=== PATIENT | female | born 1970 | race Hispanic/Latino ===

== ENCOUNTER 2023-07-29 07:43 | Emergency (ER) | payer OTHER, SELFPAY ==
[2023-07-29 07:44] VITALS: BP 163/99
[2023-07-29 07:52] VITALS: BMI 42.4
[2023-07-29 07:55] VITALS: BP 132/54
[2023-07-29 08:00] VITALS: BP 119/66
[2023-07-29 08:36] LABS: % Basophils 0.4 % (0-2); % Eosinophils 1.8 % (0-6); % Immature Granulocytes 0.2 % (0-0.5); % Lymphocytes 31.9 % (20.5-51.1); % Monocytes 7.8 % (1.7-9.3); % Neutrophils 57.9 % (42.2-75.2); Absolute Eosinophils 0.2 10^3/uL (0-0.7); Absolute Lymphocytes 2.9 10^3/uL (1.2-3.4); Absolute Monocytes 0.7 10^3/uL (0.1-0.6); Absolute Neutrophils 5.3 10^3/uL (1.4-6.5); Hematocrit 38.5 % (37.0-47.0); Hemoglobin 13.1 g/dL (12.0-16.0); Mean Corpuscular Hgb 25.6 pg (27.0-31.0); Mean Corpuscular Volume 75.3 fL (81.0-99.0); Mean Platelet Volume 9.6 fL (7.4-10.4); Nucleated Red Blood Cells % 0 %; Platelet Count 258 10^3/uL (130-400); Red Blood Cell Count 5.11 10^6/uL (4.20-5.40); Red Cell Dist. Width 13.5 % (11.5-14.5); White Blood Cell Count 9.2 10^3/uL (4.8-10.8)
[2023-07-29 08:50] LABS: Blood Urea Nitrogen 13 mg/dl (7-17); Calcium 9.3 mg/dl (8.4-10.2); Carbon Dioxide 25 mmol/L (22-30); Chloride 102 mmol/L (98-107); Estimated Creatinine Clearance 103 ml/min; Glucose 91 mg/dl (70-99); Sodium 137 mmol/L (135-145); eGFR > 60.00
[2023-07-29 09:00] VITALS: BP 121/67
[2023-07-29 09:28] LABS: Troponin I < 0.012 ng/ml
[2023-07-29 09:32] LABS: TSH Reflex To Free T4 2.73 uIU/ml (0.47-4.68)
--- NOTE | 2023-07-29 09:53 | ED.GENMED ---
History of Present Illness
General
Chief Complaint: Heart Rate Problem
Source: patient and records
Exam Limitations: none
Time Seen by Provider: 07/29/23 07:53
Nursing documentation reviewed up to this point in time: agreed with
Travel History
Have you had any contact with someone who has COVID-19?: No
Do you have any symptoms of coronavirus? Fever > 100 degrees, chills, cough, shortness of breath, sore throat, loss of taste or smell, muscle aches, or headache?: No
History of Present Illness
History of Present Illness:
Patient is a 53-year-old female presents to the emergency department with a racing heart intermittently for the past week however the last 2 days it is lasting for greater than 10 minutes at a time and occurred at work today. It is progressively
been lasting longer. Occurs at rest or with activity and does not seem to follow any particular pattern. It comes and goes spontaneously. Patient denies any skin, hair or weight changes. Patient today was concerned because she felt chest
heaviness and abdominal discomfort. Patient denies any nausea, vomiting, diarrhea. Patient occasionally gets diarrhea from the metformin. Patient denies any symptoms. Patient has actually decreased her amount of caffeine intake. Patient is
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
Past History
Past History
ED Past Medical History: GERD, NIDDM and Other (Heparin-induced thrombocytopenia, adrenal infarct)
ED Past Surgical History: None
Social History
Tobacco: Non-smoker
Alcohol: None
Drug: None
Living: with family
Employment: Employed
Family History
Family History: Other (Mother with breast cancer)
Review of Systems
Review of Systems
All Other Systems: ROS reviewed and negative except as documented in HPI and ROS
Constitutional: Reports no symptoms; Denies fever, weight gain, weight loss or chills
EENT: Reports no symptoms
Respiratory: Reports no symptoms
Cardiac: Reports chest pain and palpitations; Denies diaphoresis or syncope
ABD/GI: Reports abdominal pain; Denies nausea, vomiting, diarrhea, constipated or anorexia
: Reports no symptoms
Musculoskeletal: Reports no symptoms
Skin: Reports no symptoms
Neurological: Reports no symptoms
Hematologic/Lymphatic: Reports no symptoms
Psychiatric: Reports no symptoms
Phy Exam
Physical Exam
Physical Exam:
Physical Exam
General: No apparent distress, alert and appropriate, well nourished, well hydrated
HENT: Normocephalic, supple with no lymphadenopathy, no thyromegaly
Eyes: Clear sclera, conjuctiva without injection
Heart: Regular rhythm and rate. No S3, S4. No murmur. No NVD, bruit
Lungs: No respiratory distress, no stridor, lung sounds clear and equal bilaterally
Abdomen: Soft, nontender, no organomegaly, no CVA tenderness, BS good
Neuro: Alert and oriented x 3, CN II - XII intact, no motor focality, no cerebellar dysfunction
Skin: no rash
Psychiatric: well kept. interactive and cooperative
Extremities: No edema, cyanosis, tenderness, Good and equal peripheral pulses.
Course
Orders/Labs/Results
Orders:
Orders
07/29/23 07:46
Electrocardiogram (*1) Urgent
Reason for Study: Chest Pain
EKG- Treatment ONCE
07/29/23 08:08
Basic Metabolic Panel Urgent
Complete Blood Count/With Diff Urgent
TSH Reflex To Free T4 Urgent
Comment: ADD ON
Troponin I Urgent
07/29/23 08:31
Add On- LAB Urgent
Tests Added?: tsh reflex t4
07/29/23 08:55
Potassium Urgent
Abnormal Lab Results
07/29/23
08:08
MCV 75.3 L fL
(81.0-99.0)
MCH 25.6 L pg
(27.0-31.0)
Absolute Monos (auto) 0.7 H 10^3/uL
(0.1-0.6)
07/29/23 08:08
07/29/23 08:55
Vital Signs
Initial and Last Documented VS:
Initial Vital Signs
Temp Pulse Resp BP Pulse Ox
97.9 F 96 16 163/99 100
07/29/23 07:44 07/29/23 07:44 07/29/23 07:44 07/29/23 07:44 07/29/23 07:44
Last Documented Vital Signs
Temp Pulse Resp BP Pulse Ox
97.9 F 85 17 121/67 100
07/29/23 07:44 07/29/23 09:00 07/29/23 09:00 07/29/23 09:00 07/29/23 09:00
*Radiology
Radiology exam reviewed: other (na)
*Pulse Oximetry
Patient hypoxic: no
*EKG
Interpreted by ED Provider?: Yes
EKG Intrepretation Date: 07/29/23
EKG Intrepretation Time: 09:59
Interpretation: normal
Comparison EKG: no changes
Heart Rate: 91
Rate: normal
Rhythm: sinus
[place]: normal axis
Interval: normal interval
QRS Pattern: normal QRS
Ischemia: no ischemia
*[employer] Interpretation
Rate: normal
Interpretation: normal
Heart Rate: 85
Rhythm: sinus
*Critical Care Note
Total Time (30-74mins, 75-104mins- exclusive of procedures): Not Applicable
ED Attending Note
-
Portions of this chart may have been created with voice recognition software.� Occasional wrong word or��sound alike� substitutions may have occurred due to the inherent limitations of voice recognition software.
Discharge Plan
Departure
Patient Disposition: Home (Routine Discharge)
Date of Disposition: 07/29/23
Time of Disposition: 10:00
Patient with high blood pressure during this ER visit?: Yes
Condition: Good
Covid-19: Not Applicable
Discharge Problem:
Palpitations
Instructions: Palpitations (DC), BLOOD PRESSURE
Prescriptions:
New
metoprolol succinate [Toprol XL] 25 mg tablet extended release 24 hr
25 mg PO DAILY PRN (Reason: palpitations) Qty: 30 0RF
No Action
ascorbic acid (vitamin C) [Vitamin C] 1,000 mg Tablet
1 g PO DAILY AT 0700
hydrocortisone 10 mg tablet
15 mg PO DAILY
metformin 500 mg tablet extended release 24 hr
500 mg PO DAILY
Rx Instructions:
Patient takes trulicity weekly on Wednesdays. When trulicity unavailable, patient takes metformin ER 500mg daily in AM.
fludrocortisone 0.1 mg tablet
0.1 mg PO DAILY
Xarelto 20 mg tablet
20 mg PO DAILY
Trulicity 1.5 mg/0.5 mL pen injector
1.5 mg SC WE
Patient Comments:
Patient takes trulicity weekly on Wednesdays. When trulicity unavailable, patient takes metformin ER 500mg daily in AM.
hydrocortisone 10 MG tablet
10 mg PO QPM
Referrals:
Kem Cardenas DO [Active] - Call in 1-3 days for appt
Rita Mack DO [Family Provider] - Follow up in 5-7 days
Interventions
Interventions:
*Risk Screen - Suicide Last Done: 07/29/23 07:52
*General Assessment Last Done: 07/29/23 07:52
*Neglect/Abuse Screening Last Done: 07/29/23 07:52
ED- Fall Risk Assessment Last Done: 07/29/23 07:52
*ED COVID-19 Vaccine History Last Done: 07/29/23 07:44
ED- Cardiac Assessment Last Done: 07/29/23 07:52
ED- Pulmonary Assessment Last Done: 07/29/23 07:52
[2023-07-29 10:00] VITALS: BP 120/86
== END 2023-07-29 10:25 | disposition home or self-care (01) ==
LOC: EMR 07:43
PROVIDERS: EMERGENCY PHYSICIAN Emergency Medicine; FAMILY PHYSICIAN Internal Medicine
DX: R00.2 Palpitations (principal); R07.9 Chest pain, unspecified; R10.9 Unspecified abdominal pain; Z79.01 Long term (current) use of anticoagulants; R03.0 Elevated blood-pressure reading, without diagnosis of hypertension
CPT/HCPCS: 99284; 80048; 84132; 84443; 84484; 85025; 93005

== ENCOUNTER 2023-08-10 16:53 | Observation (INO) | payer OTHER, SELFPAY ==
[2023-08-10] VITALS (9 sets, daily range): BP systolic 111–180; BP diastolic 54–112; BMI 43.0; BMI 31.7
[2023-08-10 12:53] LABS: Glucose - Point of Care 110 mg/dl (70-99)
[2023-08-10 13:46] LABS: Glucose - Point of Care 108 mg/dl (70-99)
--- NOTE | 2023-08-10 13:46 | ED.GENMED ---
History of Present Illness
General
Chief Complaint: Change in Mental Status
Source: patient and other (Neighbor)
Exam Limitations: altered mental status
Time Seen by Provider: 08/10/23 13:25
Nursing documentation reviewed up to this point in time: agreed with
Travel History
Have you had any contact with someone who has COVID-19?: No
Do you have any symptoms of coronavirus? Fever > 100 degrees, chills, cough, shortness of breath, sore throat, loss of taste or smell, muscle aches, or headache?: No
History of Present Illness
History of Present Illness:
53-year-old female with a past medical history of diabetes, adrenal insufficiency secondary to adrenal infarct (she is on Xarelto for this) who presents to the emergency department accompanied by her neighbor for evaluation of confusion and memory
issues. Patient is very tearful and anxious and somewhat limited as a historian because she cannot recall some basic facts. Her neighbor says that at baseline she is oriented x 3 and is a normal person; neighbor said that she saw patient yesterday
at patient was normal and went to work and did her usual routine as far as neighbor can tell. Today her neighbor says that patient knocked on the door and said that she was not feeling right. She could not remember basic facts and was having
serious difficulty with her memory. She was brought to the emergency room for assessment. Patient can tell me where she is and was able to tell me the year but could not tell me the month or even the season. She cannot remember what she did
yesterday or other basic facts about her life. She says she has a mild headache. She denies feeling numb or weak anywhere. She denies any change in her vision. She denies having difficulty with her speech.
Past History
Past History
ED Past Medical History: GERD, NIDDM and Other (Heparin-induced thrombocytopenia, adrenal infarct)
ED Past Surgical History: None
Social History
Tobacco: Non-smoker
Alcohol: None
Drug: None
Living: with family
Employment: Employed
Family History
Family History: Other (Mother with breast cancer)
Review of Systems
Review of Systems
All Other Systems: ROS reviewed and negative except as documented in HPI and ROS
Respiratory: Denies trouble breathing
Cardiac: Denies chest pain or palpitations
ABD/GI: Denies abdominal pain, nausea or vomiting
: Denies flank pain
Musculoskeletal: Denies neck pain or back pain
Neurological: Reports headache and other (Memory issues/confusion); Denies dizzy, weakness or numbness
Phy Exam
Physical Exam
Physical Exam:
General: Awake, alert, tearful and anxious; she is oriented to person and place, was able to tell me the year but not the month or the season
Head: Normocephalic, atraumatic
Eyes: Conjunctiva normal, EOMI, pupils equal round reactive to light bilaterally, visual horan intact
Throat: Airway intact, handling secretions
Neck: Trachea midline, supple without meningismus
Lungs: Clear to auscultation bilaterally, no wheezing, rales, rhonchi
Heart: Tachycardia with regular rhythm, no murmurs, gallops, or rubs
Abd: Soft, non distended, nontender
Neuro: Cranial nerves intact 2 through 12, following complex commands, no limb ataxia, fluid speech without dysarthria or aphasia, motor and sensory function is intact proximally and distally upper and lower extremities; she has poor short-term
recall
Skin: no rash
Extremities: No edema in extremities, equal pulses in all extremities
Scores
Heart Failure Risk
Heart Failure Risk Score: Not Applicable
Heart Score for Chest Pain Patients
STEMI patient?: Not applicable
Withdrawal Assessment of Alcohol
Withdrawal Assessment Completed?: Not applicable
Course
Orders/Labs/Results
Orders:
Orders
08/10/23 13:27
CT Head W/o Iv Contrast Urgent
Comment:
Reason For Exam: confusion, memory loss
08/10/23 13:35
Alcohol Urgent
Complete Blood Count/With Diff Urgent
Comprehensive Metabolic Panel Urgent
Cortisol, Random Urgent
Comment: ADD ON
HCG, Serum Qualitative Screen Urgent
08/10/23 13:45
Electrocardiogram (*1) Urgent
Reason for Study: TIA/Stroke
NEUROLOGY CONSULT Urgent
Consulting Provider: Radha Parra
Was physician already notified: Yes
EKG- Treatment ONCE
Test Result ONCE
08/10/23 13:54
Add On- LAB Urgent
Comments:: ALCOHOL, CORTISOL, HCG
Tests Added?: ALCOHOL, CORTISOL, HCG
08/10/23 14:34
Drug Screen, Urine [Urine Drug Abuse Screen] Urgent
Date Specimen was Collected: 08/10/23
Time Specimen was Collected: 14:30
Urinalysis Reflex To Culture Urgent
Date Specimen was Collected: 08/10/23
Time Specimen was Collected: 14:31
Urine Microscopic Reflex Cult Urgent
08/10/23 15:07
0.9% Sodium Chloride 1000 ml [Nss] 1,000 ml IV BOLUS
Diphenhydramine [Benadryl] 25 mg IV NOW STA
Metoclopramide [Reglan] 10 mg IV NOW STA
Abnormal Lab Results
08/10/23 08/10/23 08/10/23
12:51 13:35 13:40
MCV 74.7 L fL
(81.0-99.0)
MCH 25.9 L pg
(27.0-31.0)
Absolute Neuts (auto) 6.9 H 10^3/uL
(1.4-6.5)
Absolute Monos (auto) 0.7 H 10^3/uL
(0.1-0.6)
Lymphocytes % 19.3 L %
(20.5-51.1)
Glucose 116 H mg/dl
(70-99)
Ur Occult Blood Reflex
POC Glucose 110 H mg/dl 108 H mg/dl
(70-99) (70-99)
08/10/23
14:34
MCV
MCH
Absolute Neuts (auto)
Absolute Monos (auto)
Lymphocytes %
Glucose
Ur Occult Blood Reflex Trace A
(Negative)
POC Glucose
08/10/23 13:35
08/10/23 13:35
Vital Signs
Initial and Last Documented VS:
Initial Vital Signs
Temp Pulse Resp BP Pulse Ox
36.7 C 109 18 180/112 99
08/10/23 12:42 08/10/23 12:42 08/10/23 12:42 08/10/23 12:42 08/10/23 12:42
Last Documented Vital Signs
Temp Pulse Resp BP Pulse Ox
36.7 C 90 16 128/56 98
08/10/23 12:42 08/10/23 16:00 08/10/23 16:00 08/10/23 16:00 08/10/23 16:00
MDM/Problems Addressed
Differential Diagnosis Includes:
Intracranial hemorrhage, CVA, seizure, complex migraine, transient global amnesia, hypoglycemia, meningoencephalitis considered somewhat less likely without fever or neck pain/stiffness
MDM/Problems Addressed:
53-year-old female presents for evaluation of confusion�onset somewhat unclear but was in her normal state of health yesterday per neighbor. She is hypertensive and tachycardic. Exam as above. Accu-Chek normal. Plan to place an IV check labs
including a CBC and a CMP. Will check an EKG. Will send for stat CT head. Check a random cortisol level as well. Case discussed with neurology for assessment.
Labs reviewed: CBC unremarkable, CMP shows no clinically significant abnormalities. Cortisol was normal. Urinalysis no infection. UDS and alcohol levels negative. CT head negative for any acute pathology. EKG shows sinus rhythm. Patient's
family now at bedside says that this is an abrupt change from normal and is quite severe. Says she has never had similar symptoms in the past. Will plan to admit for continued evaluation of her symptoms. Neurology consulted plan to assess at
bedside. Discussed with hospitalist for admission.
Chronic conditions affecting care:
Diabetes
Acute Exacerbation and/or Progression of Chronic Illness:
Acutely hypertensive
*Radiology
Radiology exam reviewed: radiology read reviewed
*Pulse Oximetry
Patient hypoxic: no
*Critical Care Note
Total Time (30-74mins, 75-104mins- exclusive of procedures): Not Applicable
Data Reviewed
Review of Other/Old Records Reveals: Labs and Records
Source: patient and other (Neighbor)
Patient Management
Discussion with other providers: Hospitalist (Discussed with hospitalist) and Bulb Tester (Discussed with neurology)
Escalation/DeEscalation of care consider admission/obs:
Admission indicated
ED Attending Note
-
Portions of this chart may have been created with voice recognition software.� Occasional wrong word or��sound alike� substitutions may have occurred due to the inherent limitations of voice recognition software.
Discharge Plan
Departure
Patient Disposition: Admit
Date of Disposition: 08/10/23
Time of Disposition: 16:14
Admit to doctor: [facility]
Presentation/result/management discussed w/ accepting MD/DO: Hospitalist
Discharge Problem:
Amnesia, Confusion
Prescriptions:
No Action
ascorbic acid (vitamin C) [Vitamin C] 1,000 mg Tablet
1 g PO DAILY AT 0700
hydrocortisone 10 mg tablet
15 mg PO DAILY
metformin 500 mg tablet extended release 24 hr
500 mg PO DAILY
Rx Instructions:
Patient takes trulicity weekly on Wednesdays. When trulicity unavailable, patient takes metformin ER 500mg daily in AM.
fludrocortisone 0.1 mg tablet
0.1 mg PO DAILY
Xarelto 20 mg tablet
20 mg PO DAILY
Trulicity 1.5 mg/0.5 mL pen injector
1.5 mg SC WE
Patient Comments:
Patient takes trulicity weekly on Wednesdays. When trulicity unavailable, patient takes metformin ER 500mg daily in AM.
hydrocortisone 10 MG tablet
10 mg PO QPM
metoprolol succinate [Toprol XL] 25 mg tablet extended release 24 hr
25 mg PO DAILY PRN (Reason: palpitations) Qty: 30 0RF
Referrals:
Rita Mack DO [Family Provider] -
Interventions
Interventions:
*Risk Screen - Suicide Last Done: 08/10/23 12:42
*Neglect/Abuse Screening Last Done: 08/10/23 12:42
*ED COVID-19 Vaccine History Last Done: 08/10/23 12:42
[2023-08-10 13:53] LABS: % Basophils 0.4 % (0-2); % Eosinophils 2.7 % (0-6); % Immature Granulocytes 0.2 % (0-0.5); % Lymphocytes 19.3 % (20.5-51.1); % Monocytes 6.6 % (1.7-9.3); % Neutrophils 70.8 % (42.2-75.2); Absolute Eosinophils 0.3 10^3/uL (0-0.7); Absolute Lymphocytes 1.9 10^3/uL (1.2-3.4); Absolute Monocytes 0.7 10^3/uL (0.1-0.6); Absolute Neutrophils 6.9 10^3/uL (1.4-6.5); Hematocrit 38.3 % (37.0-47.0); Hemoglobin 13.3 g/dL (12.0-16.0); Mean Corp Hgb Conc. 34.7 g/dL (33.0-37.0); Mean Corpuscular Hgb 25.9 pg (27.0-31.0); Mean Corpuscular Volume 74.7 fL (81.0-99.0); Mean Platelet Volume 9.6 fL (7.4-10.4); Nucleated Red Blood Cells % 0 %; Platelet Count 269 10^3/uL (130-400); Red Blood Cell Count 5.13 10^6/uL (4.20-5.40); Red Cell Dist. Width 13.9 % (11.5-14.5); White Blood Cell Count 9.8 10^3/uL (4.8-10.8)
[2023-08-10 14:07] LABS: ALT (SGPT) 18 U/L (0-35); AST (SGOT) 23 U/L (14-36); Albumin 3.9 g/dl (3.5-5.0); Alkaline Phosphatase 96 U/L (38-126); Blood Urea Nitrogen 14 mg/dl (7-17); Calcium 9.4 mg/dl (8.4-10.2); Carbon Dioxide 28 mmol/L (22-30); Chloride 102 mmol/L (98-107); Glucose 116 mg/dl (70-99); Potassium 3.8 mmol/L (3.5-5.1); Sodium 138 mmol/L (135-145); Total Bilirubin 0.5 mg/dl (0.2-1.3); eGFR > 60.00
[2023-08-10 14:32] LABS: HCG, Serum Qualitative Screen Negative
[2023-08-10 14:36] LABS: Alcohol None Detected
[2023-08-10 14:48] LABS: Urine Albumin Negative (Neg - Trace); Urine Bilirubin Negative (Negative); Urine Character Clear (Clear); Urine Color Yellow; Urine Glucose Negative (Negative); Urine Ketone Negative (Negative); Urine Leukocyte Negative (Negative); Urine Nitrite Negative (Negative); Urine Occult Blood Trace (Negative); Urine Urobilinogen Negative (Neg - 1+)
[2023-08-10 14:57] LABS: Urine Red Blood Cell 0-2 /HPF (0-2)
[2023-08-10 15:01] LABS: Amphetamines Negative (Negative); Barbiturates Negative (Negative); Benzodiazepines Negative (Negative); Buprenorphine Negative (Negative); Cocaine Negative (Negative); Marijuana Negative (Negative); Methadone Negative (Negative); Methamphetamines Negative (Negative); Opiates Negative (Negative); Phencyclidine Negative (Negative); Tricyclic Antidepressants Negative (Negative)
[2023-08-10 15:13] LABS: Cortisol, Random 15.4 ug/dl
[2023-08-10] MEDS: REGLAN 10 MG IV (15:33)
[2023-08-10] MEDS: BENADRYL 25 MG IV (15:33)
[2023-08-10] MEDS: NSS 1000 IV (15:33)
--- NOTE | 2023-08-10 16:25 | PHANOTE ---
Med Rec Note- patient has prescription bottles with her and can not remember if she took anything today
--- NOTE | 2023-08-10 16:36 | HPS.HSE ---
Family Physician
-
Family Physician: Rita Mack
Chief Complaint
-
Memory Problem
History of Present Illness
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 She was seen here at the [facility] about two weeks ago
with complaints of palpitations at which time she was started on Toprol XL. Apparently patient was in her usual state of health yesterday. Today the patient went over to her neighbors house as she did not feel right. Neighbor noted her to be
confused and having trouble with her memory, and patient was brought to the emergency department for evaluation. Patient reports associated headache for the past 2 days. Patient admits to increased stress recently. She denies any prior history of
stroke or seizure.
Medical History
Past Medical History
Past Medical History: Reports Other
Additional Past Medical History:
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
Diabetes Mellitus, Type II
Heparin-Induced Thrombocytopenia
Past Surgical History: Reports Other
Additional Past Surgical History:
Appendectomy
Tonsillectomy
Social History
Tobacco: Non-smoker
Alcohol: None
Drug: None
Family History
Family History: Not pertinent
Allergies / Home Medications
Allergies reflects when Allergies were last updated in [facility].
Home Medications with original date entered in [facility]
Allergy/Medication List:
Allergies
Allergy/AdvReac Type Severity Reaction Status Date / Time
enoxaparin Allergy Heparin-induced Verified 07/29/23 07:45
thrombocytopenia
erythromycin base Allergy Rash Verified 07/29/23 07:45
[From Erythrocin]
heparin Allergy Heparin-induced Verified 07/29/23 07:45
thrombocytopenia
Home Medications
fludrocortisone 0.1 mg tablet 0.1 mg PO DAILY adrenal insufficiency 07/29/23
hydrocortisone 10 mg tablet 10 mg PO QPM adrenal insufficiency 07/29/23
hydrocortisone 10 mg tablet 15 mg PO DAILY adrenal insufficiency 07/29/23
metformin 500 mg tablet,extended release 24 hr 500 mg PO DAILY Diabetes 07/29/23
metoprolol succinate 25 mg tablet,extended release 24 hr (Toprol XL) 25 mg PO DAILY PRN palpitations #30 tabs 07/29/23
rivaroxaban 20 mg tablet (Xarelto) 20 mg PO DAILY Blood Clot Prevention/Tx 07/29/23
Review of Systems
-
A 12 point ROS was completed and negative except as noted: Yes
Constitutional: Denies Fever or Chills
Respiratory: Denies Cough or Trouble Breathing
Cardiac: Denies Chest Pain or Palpitations
Abdomen/GI: Denies Abdominal Pain, Nausea, Vomiting or Diarrhea
Neurological: Reports See HPI and Headache; Denies Weakness
Physical Exam
Vital Signs
Vital Signs
Temp Pulse Resp BP Pulse Ox
98.1 F 90 16 128/56 98
08/10/23 12:42 08/10/23 16:00 08/10/23 16:00 08/10/23 16:00 08/10/23 16:00
Physical Exam
General: Comfortable and Conversant
HEENT: Anicteric and Moist mucous membranes
Respiratory: Clear and Non Labored Respirations
Cardiac: S1/S2 and Regular Rhythm
GI: Soft, Non Tender and Non Distended
Rectal: Deferred by Provider
Skin: Warm and Dry
Neuro: Awake, Alert and No Motor Deficits
Psych: Calm
Laboratory Results
-
08/10/23 13:35
08/10/23 13:35
Laboratory Results
Total Bilirubin 0.5 mg/dl (0.2-1.3) 08/10/23 13:35
AST 23 U/L (14-36) 08/10/23 13:35
ALT 18 U/L (0-35) 08/10/23 13:35
Alkaline Phosphatase 96 U/L (38-126) 08/10/23 13:35
Data Reviewed
-
CT Scan: Report Reviewed by me
Lab Data: Labs Reviewed by me
Impression/Plan
-
Acute Confusion, unclear cause at present time, possibly TGA
-Consult Neurology
-Check Brain MRI
-Monitor neuro-checks
Headache
-Give Tylenol 1000mg Now
-If no improvement consider dose of Toradol, though would be prefer to limit NSAIDs as patient is on anticoagulation
Adrenal Insufficiency secondary to Bilateral Adrenal Infarcts
-Continue fludrocortisone and hydrocortisone
Diabetes Mellitus, Type II
-Metformin on hold in acute setting
-Monitor sugars and continue coverage insulin
Hx HIT
DVT proph: Xarelto
Code Status: Full Code
--- NOTE | 2023-08-10 16:43 | W.PN.UPDATE ---
Update Note
Progress Note Update
I saw and examined the patient.
The STOCK BROKER or PA's note was reviewed and I agree with the note.
Comment: 53 y/o F p/w CC memory loss and confusion.
128/56, 90, 16, 98.1 F, 98% RA
NAD, Awake and alert
EOMI no scleral icterus
RRR, normal S1/S2
CTAB
CN2-12 intact, non-focal
WBC 9.8
Hb 13.3
plt 269
Cr 0.7, K 3.8, Na 138
Random Cortisol 15.4
ECG (read by me): NSR @ 89, normal axis/intervals, no acute ST/TW changes
CT brain: No acute intracranial abnormality noted.
Acute confusion:
-differential broad at this time but most likely TGA
-no electrolyte abnormalities. No evidence of presentation of infection.
-check MRI brain
-monitor on tele
-supportive care
-neuro evaluating now, I discussed the case with Dr. Parra
--- NOTE | 2023-08-10 17:20 | CON.NEURO4 ---
Consultation - Neurology 4
-
CONSULTING PHYSICIAN: Fidel
REFERRING PHYSICIAN: Dr. Gianni Jr.
DICTATED BY: Fidel
DATE/TIME OF REQUEST: 08/10/23 in afternoon
DATE/TIME OF CONSULTATION: 08/10/23 at 1645
Reason for Consultation: confusion
History of Present Illness:
53-year-old female with a past medical history of diabetes, adrenal insufficiency secondary to adrenal infarct on Xarelto as well as heparin-induced thrombocytopenia who came into the ER accompanied by her neighbor initially for confusion and memory
loss. Last known normal was approximately 5 PM yesterday evening. Her son who later came to the ER states that she lives with her 3 children and that is when he last saw her at her baseline. She went to work yesterday and there was nothing
clearly amiss.
She has had a very increased stress level due to a family issue recently and has felt distracted by her stress level to the point that she has missed some of her meds; unclear if she took her meds today. Son denies any concern for baseline
cognitive impairment. No prior history of seizure. She does a history of headaches but has never seen a neurologist. Her headaches have been progressively worsening recently. She takes Tylenol only as abortive therapy. She has had a headache
since at least earlier this morning. ONly recent medication changes were the addition of metoprolol about a week ago.
Today she knocked on her neighbor's door and said that she did not feel right. She could not remember basic facts including her children's names and her current location. She was brought into the ER for further evaluation. She was anxious and
tearful throughout the event and repeatedly asked the same questions. Her symptoms began to improve about 1 hour prior to when I saw her. History was provided predominantly by her eldest son who was at the bedside. Headache is currently a 7 out
of 10. She is still not completely back to her baseline. She has had no associated loss of consciousness throughout the event. No convulsive activity/muscle twitching. No clear focal neurological deficits throughout the event including weakness,
numbness, aphasia, dysarthria or visual disturbances.
PMH:
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
Diabetes Mellitus, Type II
Heparin-Induced Thrombocytopenia
Past Surgical History:
Appendectomy
Tonsillectomy
Social History
Tobacco: Non-smoker
Alcohol: None
Drug: None
Family History
Family History: eldest son has epilepsy
Allergies
enoxaparin Allergy (Verified 07/29/23 07:45)
Heparin-induced thrombocytopenia
erythromycin base [From Erythrocin] Allergy (Verified 07/29/23 07:45)
Rash
heparin Allergy (Verified 07/29/23 07:45)
Heparin-induced thrombocytopenia
Home Medications
Medication Instructions Recorded
fludrocortisone 0.1 mg tablet 0.1 mg PO DAILY adrenal 07/29/23
insufficiency
hydrocortisone 10 mg tablet 10 mg PO QPM adrenal insufficiency 07/29/23
hydrocortisone 10 mg tablet 15 mg PO DAILY adrenal 07/29/23
insufficiency
metformin 500 mg tablet,extended 500 mg PO DAILY Diabetes 07/29/23
release 24 hr
metoprolol succinate 25 mg 25 mg PO DAILY PRN palpitations 07/29/23
tablet,extended release 24 hr #30 tabs
(Toprol XL)
rivaroxaban 20 mg tablet (Xarelto) 20 mg PO DAILY Blood Clot 07/29/23
Prevention/Tx
Review of Symptoms:
Patient denies any fever, headache, chest pain, shortness of breath, GI or symptoms.
�Per the HPI.�All systems are reviewed negative except above.
Vital Signs
Temp Pulse Resp BP Pulse Ox
98.1 F 90 16 128/56 98
08/10/23 12:42 08/10/23 16:00 08/10/23 16:00 08/10/23 16:00 08/10/23 16:00
Lab Results
08/10/23 13:35
08/10/23 13:35
Sodium 138 mmol/L (135-145) 08/10/23 13:35
Potassium 3.8 mmol/L (3.5-5.1) 08/10/23 13:35
BUN 14 mg/dl (7-17) 08/10/23 13:35
Glucose 116 mg/dl (70-99) H 08/10/23 13:35
Calcium 9.4 mg/dl (8.4-10.2) 08/10/23 13:35
Ur Buprenorphine Negative (Negative) 08/10/23 14:34
Physical Exam:
The patient is afebrile, heart sounds S1 and S2 are regular, and chest is clear to auscultation bilaterally.
Neurologic Examination: She was examined after receiving Benadryl.
The patient is awake, alert and oriented x 3 except for the date. Deferred to son to provide her medical history; able to state her address, spell backwards, name her , of her three children, knew name of hospital; could not recall details
of earlier in the day. She is able to follow commands and answer questions appropriately. There is no aphasia or dysarthria. On cranial nerve assessment, pupils are 3 mm bilateral, round and reactive to light and accommodation. Visual horan are
full. Extraocular movements are intact. Facial sensations are intact and bilaterally symmetrical, there is no facial asymmetry. Hearing is intact bilaterally to normal conversation volume. Tongue palate and uvula are midline. Sternocleidomastoid
strengths are full bilaterally. Motor strengths are 5/5 bilateral upper and lower extremities on medical research [place] scale. There is no drift or involuntary movement noted. Deep tendon reflexes are 2+ bilateral upper and lower extremities and
Babinski is absent bilaterally. Sensations of touch, temperature are intact and bilaterally symmetrical. There was no extinction noted on double simultaneous stimulation. Coordination is intact by finger to nose bilaterally.
Neuro Imaging: HCT: no acute findings
Impression:
TOM OVIEDO is a 53 year old F who has presented to the hospital with confusion and repeatedly asking the same questions in a pattern consistent with transient global amnesia. She has had a significantly increased stress level and reports
missing some of her medications as well as worsening of her baseline headaches as well.
Recommendations:
1. MRI brain given complex past medical history, missed medication, worsening headaches in conjunction with what sounds like transient global amnesia, lack of full return to baseline
2. admit for observation as she has not completely returned to her baseline
3. Toradol 15mg IV for headache abortive therapy; try to limit further administration of Benadryl given sedating s/e
4. neurochecks
5. resume outpatient medications
Discussed likely diagnosis of TGA at length with patient and her son at bedside including potential mechanisms, triggers and recurrence rate.
May benefit from psychotherapy, psychiatry evaluation as outpatient given increased stress level.
Discussed patient care with: patient; patient's son; Dr. Archer; Dr. Hinojosa; JOSE RAUL Souza
[2023-08-10] MEDS: TYLENOL 1000 MG PO (17:22)
--- NOTE | 2023-08-10 19:15 | PTCARENOTE ---
Pt brought to floor VSS A+OX3 pt oriented to room and POC. Will continue to monitor and assess.
[2023-08-10 19:46] LABS: Glucose - Point of Care 218 mg/dl (70-99)
[2023-08-10] MEDS: CORTEF 10 MG PO (19:48)
[2023-08-10] MEDS: NOVOLOG FLEXPEN-LOW RESISTANCE 2 UNITS SC (19:59)
[2023-08-10 21:53] LABS: Glucose - Point of Care 145 mg/dl (70-99)
[2023-08-11 03:40] VITALS: BP 116/67
[2023-08-11] MEDS: VITAMIN C 1000 MG PO (05:44)
[2023-08-11 07:00] VITALS: BP 115/73
[2023-08-11 07:57] LABS: Glucose - Point of Care 86 mg/dl (70-99)
[2023-08-11 07:58] LABS: HDL Cholesterol 51 mg/dl; LDL Cholesterol, Calculated 80 mg/dl; Total Cholesterol 145 mg/dl (50-199); Triglyceride 70 mg/dl (10-149); Very Low Density Lipoprotein 14 mg/dl (0-30)
[2023-08-11] MEDS: NOVOLOG FLEXPEN-LOW RESISTANCE SC (08:29)
[2023-08-11] MEDS: CORTEF 15 MG PO (08:30)
[2023-08-11] MEDS: FLORINEF 0.100000000000000006 MG PO (08:30)
[2023-08-11] MEDS: FLUSH (NSS) 1 FLUSH IV (08:30)
[2023-08-11] MEDS: XARELTO 20 MG PO (08:30)
[2023-08-11 09:04] LABS: Glycohemoglobin (HgbA1c) 6.3 % (4.0-5.6)
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
[2023-08-11 11:00] VITALS: BP 119/70
--- NOTE | 2023-08-11 14:19 | W.DCSUMMARY ---
Discharge Summary
Discharge Data
Date of Admission: 08/10/23
Date of Discharge: 08/11/23
-
Pending Results: No
Hospital Course
Primary diagnoses:
Transient global amnesia
Secondary diagnoses:
h/o heparin-induced thrombocytopenia
Type 2 diabetes mellitus
Adrenal Insufficiency secondary to Bilateral Adrenal Infarcts
Consultants:
Neurology
Imaging/studies:
ECG (read by me): NSR @ 89, normal axis/intervals, no acute ST/TW changes
CT brain: No acute intracranial abnormality noted.
Hospital course: 53-year-old female presented yesterday with acute confusion examined and H&P done on admission. CT scan of the brain above and was unremarkable. She had no electrolyte abnormalities. Urine drug screen was negative. She had no
evidence on presentation of infection. The case was discussed with Dr. Parra on admission and the history and presentation was consistent with transient global amnesia. Patient was unable to have an MRI of the brain due to metal particles in the
patient's gel based nail sami. Patient was monitored on telemetry. She had no arrhythmias. Her mental status and memory returned to baseline. She was discharged in medically stable condition.
Discharge Plan
-
Patient Disposition: Home (Routine Discharge)
Discharge Diagnosis/Procedures: Transient global amnesia
Condition: Good
Diet: Diabetic, Carb Controlled
Activity: No restrictions
Driving Restrictions: As prior to admission
Bathing Restrictions: None
Referrals:
Rita Mack DO [Family Provider] - in less than 1 week
Radha Parra DO [Active] - in two to three weeks
Prescriptions:
Continued
hydrocortisone 10 mg tablet
15 mg PO DAILY
metformin 500 mg tablet extended release 24 hr
500 mg PO DAILY
Rx Instructions:
Patient takes trulicity weekly on Wednesdays. When trulicity unavailable, patient takes metformin ER 500mg daily in AM.
fludrocortisone 0.1 mg tablet
0.1 mg PO DAILY
Xarelto 20 mg tablet
20 mg PO DAILY
hydrocortisone 10 MG tablet
10 mg PO QPM
metoprolol succinate [Toprol XL] 25 mg tablet extended release 24 hr
25 mg PO DAILY PRN (Reason: palpitations) Qty: 30 0RF
Discharge Orders:
Discharge Patient (As Directed); Ordered 08/11/23
Ordered By: Edmond Hinojosa
Discharge Date and Time
Discharge Date/Time: 08/11/23 12:33
--- NOTE | 2023-08-11 14:36 | CM ---
Alert awake oriented patient who lives with 3 adult children in an apartment with 1 step to enter. She is independent in driving and all activities of daily living.Offered VN she declined.
No SNF/VN hx
Pharmacy [facility] [place]
PCP Dr Hortencia Conner
PLAN Home no needs
== END 2023-08-11 12:33 | disposition home or self-care (01) ==
LOC: 4 EAST ACU 16:53
PROVIDERS: ADMITTING PHYSICIAN Internal Medicine; CONSULT PHYSICIAN Psychiatry & Neurology Neurology; EMERGENCY PHYSICIAN Emergency Medicine; FAMILY PHYSICIAN Internal Medicine
DX: G45.4 Transient global amnesia (principal); R41.82 Altered mental status, unspecified; E11.9 Type 2 diabetes mellitus without complications; E27.40 Unspecified adrenocortical insufficiency; R51.9 Headache, unspecified; K21.9 Gastro-esophageal reflux disease without esophagitis; D75.829 Heparin-induced thrombocytopenia, unspecified; Z79.84 Long term (current) use of oral hypoglycemic drugs; Z79.52 Long term (current) use of systemic steroids; Z79.85 Long-term (current) use of injectable non-insulin antidiabetic drugs; Z79.01 Long term (current) use of anticoagulants; Z88.1 Allergy status to other antibiotic agents; Z88.8 Allergy status to other drugs, medicaments and biological substances
CPT/HCPCS: 70450; 80053; 80061; 80306; 81003; 81015; 82077; 82533; 82962; 83036; 84703; 85025; 93005; 96361; 96374; 96375; 99285; G0378

== ENCOUNTER → 2023-09-30 13:40 | Outpatient (REF) | payer OTHER, SELFPAY | LOC: RCS 13:40 | PROVIDERS: ATTENDING PHYSICIAN Internal Medicine Interventional Cardiology; FAMILY PHYSICIAN Internal Medicine | DX: R07.89 Other chest pain (principal); I10 Essential (primary) hypertension; R00.2 Palpitations | CPT/HCPCS: 93017 ==

== ENCOUNTER → 2023-10-08 14:32 | Outpatient (REF) | payer OTHER, SELFPAY | LOC: DHCBS MAIN 14:32 | PROVIDERS: ATTENDING PHYSICIAN Internal Medicine Interventional Cardiology; FAMILY PHYSICIAN Internal Medicine | DX: R07.89 Other chest pain (principal); I10 Essential (primary) hypertension; R00.2 Palpitations | CPT/HCPCS: 93306 ==

== ENCOUNTER → 2024-01-02 10:52 | Outpatient (REF) | payer OTHER, SELFPAY ==
--- NOTE | 2024-01-02 15:18 | CARDSERVDEF ---
Echocardiogram with Definity completed after protocol screening completed. Allergies verified. Pt here for Stress Echo.
Patent IV site: _Left wrist 22 G PC inserted by IV team____
IV site flushed with 0.9% NaCl pre and post administration.
Diluted bolus method utilized to enhance visualization of ventricular [place].
Total volume given: _4___ mL
Patient tolerated all procedures well without complications.
Heplock D/c ed at 1518, site clear, no redness, no edema. Pressure held for few minutes as pt on Xarelto, no bleeding. 2x2 applied and taped. Pt tolerated procedure well.
== END ==
LOC: RCS 10:52
PROVIDERS: ATTENDING PHYSICIAN Internal Medicine Interventional Cardiology
DX: I10 Essential (primary) hypertension (principal); R94.39 Abnormal result of other cardiovascular function study; R07.89 Other chest pain
CPT/HCPCS: 93017; 93350; Q9957

== ENCOUNTER 2024-12-21 11:26 | Emergency (ER) | payer OTHER, SELFPAY ==
[2024-12-21 11:34] VITALS: BP 147/82
--- NOTE | 2024-12-21 12:57 | ED.GENMED ---
History of Present Illness
General
Chief Complaint: Weakness
Source: patient
Exam Limitations: none
Time Seen by Provider: 12/21/24 12:42
Nursing documentation reviewed up to this point in time: agreed with
History of Present Illness
History of Present Illness:
54-year-old female with a past medical history of diabetes, adrenal insufficiency secondary to adrenal infarcts who presents to the emergency department for evaluation of weakness, cough, fever. Patient reports that for the past few days she has
had generalized malaise and myalgias. Today woke up with extreme fatigue as well and a hacking cough productive of clear sputum. She says that she had severe chills this morning although she did not check her temperature. She was concerned that
she could be going into an adrenal crisis and so she doubled up on her daily steroid this morning at around 11 AM came to the emergency room. She has not had any chest pain or shortness of breath. She has had some mild nausea but no vomiting or
diarrhea. She says she has some aching around the upper abdomen from coughing but no significant amount of abdominal pain otherwise. She denies any other acute complaints today.
Past History
Past History
ED Past Medical History: GERD, NIDDM and Other (Heparin-induced thrombocytopenia, adrenal infarct)
ED Past Surgical History: None
Social History
Tobacco: Non-smoker
Alcohol: None
Drug: None
Living: with family
Employment: Employed
Family History
Family History: Other (Mother with breast cancer)
Review of Systems
Review of Systems
All Other Systems: ROS reviewed and negative except as documented in HPI and ROS
Constitutional: Reports fever (Subject), fatigue and chills
EENT: Reports runny nose; Denies sore throat
Respiratory: Reports cough; Denies trouble breathing
Cardiac: Denies chest pain
ABD/GI: Reports nausea; Denies abdominal pain, vomiting or diarrhea
: Denies dysuria or flank pain
Musculoskeletal: Reports muscle pain (Myalgias); Denies neck pain or back pain
Neurological: Denies dizzy or headache
Phy Exam
Physical Exam
Physical Exam:
General: Awake, alert, oriented x3; no acute distress
Head: Normocephalic, atraumatic
Eyes: Conjunctiva normal, EOMI
Throat: Airway intact, handling secretions
Neck: Trachea midline, supple without meningismus
Lungs: Clear to auscultation bilaterally, no wheezing, rales, rhonchi
Heart: Tachycardia with regular rhythm, no murmurs, gallops, or rubs
Abd: Soft, non distended, nontender
Neuro: No gross deficits
Skin: no rash
Extremities: Warm and well-perfused, no significant edema
Scores
Heart Failure Risk
Heart Failure Risk Score: Not Applicable
Heart Score for Chest Pain Patients
STEMI patient?: Not applicable
Withdrawal Assessment of Alcohol
Withdrawal Assessment Completed?: Not applicable
Course
Orders/Labs/Results
Orders:
Orders
12/21/24 11:38
ECG [Electrocardiogram (*1)] Urgent
Reason for Study: Tachycardia
EKG- Treatment ONCE
12/21/24 12:56
0.9% Sodium Chloride 1000 ml [Nss] 1,000 ml IV BOLUS
CR Chest - 2 Views Urgent
Comment:
Reason For Exam: cough, fatigue
12/21/24 13:12
COVID-19 Antigen Urgent
Source: Nasal Swab
CPK [Creatine Phosphokinase] Urgent
Complete Blood Count/With Diff Urgent
Comprehensive Metabolic Panel Urgent
Cortisol, Random Urgent
Lactate Level [Lactic Acid] Urgent
Lipase Urgent
Magnesium Urgent
Phos [Phosphorus] Urgent
TSH Reflex To Free T4 Urgent
Blood Culture Q30M
MJ Source: Blood/Venous
Specimen Description:
Blood Culture Q30M
MJ Source: Blood/Venous
Specimen Description:
Influenza A+B Rapid Molecular Urgent
MJ Source: Nasal Swab
Specimen Description:
12/21/24 14:14
Acetaminophen [Tylenol] 1,000 mg PO NOW STA
12/21/24 15:10
Oseltamivir Phosphate [Tamiflu] 75 mg PO NOW STA
12/21/24 15:19
0.9% Sodium Chloride 1000 ml [Nss] 1,000 ml IV BOLUS
12/21/24 16:04
Urinalysis Reflex To Culture Urgent
Date Specimen was Collected: 12/21/24
Time Specimen was Collected: 15:39
Urine Microscopic Reflex Cult Urgent
Urine Culture Urgent
MJ Source: U
Specimen Description:
Date Specimen was Collected: 12/21/24
Time Specimen was Collected: 15:39
Abnormal Lab Results
12/21/24 12/21/24
13:12 16:04
MCV 75.3 L fL
(81.0-99.0)
MCH 25.4 L pg
(27.0-31.0)
Absolute Lymphs (auto) 0.4 L 10^3/uL
(1.2-3.4)
Absolute Monos (auto) 0.8 H 10^3/uL
(0.1-0.6)
Neutrophils % 81.9 H %
(42.2-75.2)
Lymphocytes % 5.8 L %
(20.5-51.1)
Monocytes % 10.6 H %
(1.7-9.3)
Sodium 133 L mmol/L
(135-145)
Glucose 201 H mg/dl
(70-99)
AST 37 H U/L
(14-36)
ALT 39 H U/L
(0-35)
Ur Occult Blood Reflex 2+ A
(Negative)
Urine Bacteria (Reflex) Moderate A
(Negative)
12/21/24 13:12
12/21/24 13:12
Vital Signs
Pulse: 107
Initial and Last Documented VS:
Initial Vital Signs
Temp Pulse Resp BP Pulse Ox
36.7 C 129 22 147/82 96
12/21/24 11:34 12/21/24 11:34 12/21/24 11:34 12/21/24 11:34 12/21/24 11:34
Last Documented Vital Signs
Temp Pulse Resp BP Pulse Ox
37.2 C 107 22 147/82 96
12/21/24 16:08 12/21/24 16:28 12/21/24 16:08 12/21/24 11:34 12/21/24 13:02
MDM/Problems Addressed
Differential Diagnosis Includes:
Pneumonia, bronchitis, adrenal crisis, UTI, anemia, viral syndrome, thyroid dysfunction
MDM/Problems Addressed:
54-year-old female presents for evaluation of worsening fatigue and cough, fever/chills this morning in the setting of recent fatigue and myalgias over the past few days. She was concerned she could be developing an adrenal crisis and took double
dose of her steroids today. She is tachycardic but normotensive. Rest of vitals normal including pulse ox of 96% on room air. Physical exam as above. Will plan to place an IV check labs including a CBC and a CMP, lactate and blood cultures,
thyroid studies, cortisol level, CPK. Will swab for COVID and flu. Will check EKG and chest x-ray. Check a urinalysis. Will provide fluids. Monitor closely reassess after the above
Labs reviewed: CBC shows no clinically significant abnormalities. CMP shows mild hyperglycemia but no DKA, known history of diabetes. Marginal elevation of the AST and ALT. Random cortisol level acceptable. Thyroid studies normal. Urinalysis
contaminated but no pyuria to suggest infection especially in the absence of urinary symptoms. She is positive for influenza A which is likely etiology to her symptoms. Her chest x-ray shows no pneumonia. She has no signs of adrenal crisis at
this point blood pressure has been normal to slightly high. She has no nausea or vomiting or abdominal cramping, benign abdominal exam. She has no hypoglycemia or significant electrolyte derangements. She is however at risk for adrenal crisis in
the setting of acute illness and so I discussed the case with endocrinology who recommended increasing her hydrocortisone to 30 mg 3 times daily until she is feeling better. At this point no clear indication for hospitalization�her heart rate has
improved with fluids and she is feeling much better after some Tylenol. I will provide Tamiflu prescription. Patient feels comfortable with discharge. We did speak about return precautions and follow-up plan and all questions were answered.
Chronic conditions affecting care:
Adrenal insufficiency
*Pulse Oximetry
SaO2: 96
Oxygen Mode of Delivery: Room air
Patient hypoxic: no (96%)
*EKG
Interpreted by ED Provider?: Yes
Heart Rate: 123
Rate: tachycardiac
Rhythm: sinus
[place]: normal axis
Interval: normal interval
QRS Pattern: low voltage
Ischemia: no ischemia
*Critical Care Note
Total Time (30-74mins, 75-104mins- exclusive of procedures): Not Applicable
Data Reviewed
Review of Other/Old Records Reveals: Labs, Records and Discharge Summary
Source: patient and records
Patient Management
Discussion with other providers: [employer] (Discussed with fur finisher tailor)
ED Attending Note
-
Portions of this chart may have been created with voice recognition software.� Occasional wrong word or��sound alike� substitutions may have occurred due to the inherent limitations of voice recognition software.
Discharge Plan
Departure
Patient Disposition: Home (Routine Discharge)
Date of Disposition: 12/21/24
Time of Disposition: 16:29
Patient with high blood pressure during this ER visit?: Yes
Discharge Problem:
Influenza A
Instructions: Flu in adults - Discharge instructions
Prescriptions:
New
hydrocortisone 10 mg tablet
30 mg PO TID 10 Days Qty: 90 0RF
oseltamivir [Tamiflu] 75 mg capsule
75 mg PO BID 5 Days Qty: 10 0RF
No Action
hydrocortisone 10 mg tablet
15 mg PO DAILY
metformin 500 mg tablet extended release 24 hr
500 mg PO DAILY
Rx Instructions:
Patient takes trulicity weekly on Wednesdays. When trulicity unavailable, patient takes metformin ER 500mg daily in AM.
fludrocortisone 0.1 mg tablet
0.1 mg PO DAILY
Xarelto 20 mg tablet
20 mg PO DAILY
hydrocortisone 10 MG tablet
10 mg PO QPM
metoprolol succinate [Toprol XL] 25 mg tablet extended release 24 hr
25 mg PO DAILY PRN (Reason: palpitations) Qty: 30 0RF
Referrals:
Rita Mack DO [Family Provider, Internal Medicine] - Follow up in 1 week
Activity Restrictions/Additional Instructions:
You were found to have the flu in the emergency room. You were prescribed Tamiflu to help with this. During your illness you should increase your dose of steroids to prevent adrenal insufficiency. The fur finisher tailor recommended continuing
fludrocortisone at your current dose but increasing your hydrocortisone to 30 mg 3 times a day until you are feeling better. If you feel your symptoms are worsening or you develop any nausea/vomiting, dizziness or any other significant concerns you
should return to the emergency room to be reassessed
Interventions
Interventions:
*Risk Screen - Suicide Last Done: 12/21/24 13:30
*General Assessment Last Done: 12/21/24 11:34
*Neglect/Abuse Screening Last Done: 12/21/24 13:30
*ED- Fall Risk Assessment Last Done: 12/21/24 13:30
*ED COVID-19 Vaccine History Last Done: 12/21/24 13:30
ED- Cardiac Assessment Last Done: 12/21/24 13:30
ED- Neurological Assessment Last Done: 12/21/24 13:30
ED- Pulmonary Assessment Last Done: 12/21/24 13:30
Discharge Date and Time
Print Language: JAPANESE
[2024-12-21] MEDS: NSS 1000 IV ×2 (13:13→16:04)
[2024-12-21 13:14] VITALS: BP 141/69
[2024-12-21 13:28] LABS: Hematocrit 38.8 % (37.0-47.0); Hemoglobin 13.1 g/dL (12.0-16.0); Mean Corp Hgb Conc. 33.8 g/dL (33.0-37.0); Mean Corpuscular Volume 75.3 fL (81.0-99.0); Nucleated Red Blood Cells % 0 %; Platelet Count 192 10^3/uL (130-400); Red Cell Dist. Width 13.5 % (11.5-14.5)
[2024-12-21 13:30] VITALS: BMI 48.3
[2024-12-21 13:43] LABS: COVID-19 Antigen Negative (Negative)
[2024-12-21 13:44] LABS: ALT (SGPT) 39 U/L (0-35); AST (SGOT) 37 U/L (14-36); Albumin 4.4 g/dl (3.5-5.0); Alkaline Phosphatase 84 U/L (38-126); Blood Urea Nitrogen 14 mg/dl (7-17); Calcium 9.6 mg/dl (8.4-10.2); Carbon Dioxide 24 mmol/L (22-30); Chloride 103 mmol/L (98-107); Estimated Creatinine Clearance 115 ml/min; Glucose 201 mg/dl (70-99); Lipase 94 U/L (23-300); Magnesium 2.0 mg/dl (1.6-2.3); Potassium 4.0 mmol/L (3.5-5.1); Sodium 133 mmol/L (135-145); Total Protein 7.2 g/dl (6.3-8.2); eGFR > 60.00
[2024-12-21 14:00] VITALS: BP 123/63
[2024-12-21] MEDS: TYLENOL 1000 MG PO (14:27)
[2024-12-21 14:28] VITALS: BP 126/65
[2024-12-21 15:00] VITALS: BP 107/71
[2024-12-21] MEDS: TAMIFLU 75 MG PO (16:04)
[2024-12-21 16:10] LABS: Cortisol, Random 14.4 ug/dl
[2024-12-21 16:16] LABS: Urine Character Clear (Clear)
[2024-12-21 16:26] LABS: Urine Red Blood Cell 0-2 /HPF (0-2); Urine Squamous Cell 16-20 /LPF (Few)
== END 2024-12-21 17:19 | disposition home or self-care (01) ==
LOC: EMR 11:26
PROVIDERS: EMERGENCY PHYSICIAN Emergency Medicine; FAMILY PHYSICIAN Internal Medicine
DX: J10.1 Influenza due to other identified influenza virus with other respiratory manifestations (principal); E11.9 Type 2 diabetes mellitus without complications; E27.40 Unspecified adrenocortical insufficiency; Z11.52 Encounter for screening for COVID-19
CPT/HCPCS: 99285; 96360; 96361; 71046; 80053; 81003; 81015; 82533; 82550; 83605; 83690; 83735; 84100; 84443; 85025; 87040; 87086; 87502; 87811; 93005

== ENCOUNTER 2024-12-22 00:37 | Observation (INO) | payer OTHER, SELFPAY ==
[2024-12-21 19:11] VITALS: BP 149/96
--- NOTE | 2024-12-21 22:45 | ED.GENMED ---
History of Present Illness
General
Chief Complaint: Cold/Flu/URI Symptoms
Time Seen by Provider: 12/21/24 22:37
History of Present Illness
History of Present Illness:
See MDM
Past History
Past History
ED Past Medical History: GERD, NIDDM and Other (Heparin-induced thrombocytopenia, adrenal infarct)
ED Past Surgical History: None
Social History
Tobacco: Non-smoker
Alcohol: None
Drug: None
Living: with family
Employment: Employed
Family History
Family History: Other (Mother with breast cancer)
Phy Exam
Physical Exam
Physical Exam:
See MDM
Course
Orders/Labs/Results
Orders:
Orders
12/21/24 22:43
0.9% Sodium Chloride 1000 ml [Nss] 1,000 ml IV BOLUS
Hydrocortisone [Cortef] 30 mg PO ONCE ONE
Ondansetron Injectable [Zofran] 4 mg IV NOW STA
Vital Signs
Initial and Last Documented VS:
Initial Vital Signs
Temp Pulse Resp BP Pulse Ox
98.4 F 112 18 149/96 97
12/21/24 19:11 12/21/24 19:11 12/21/24 19:11 12/21/24 19:11 12/21/24 19:11
Last Documented Vital Signs
Temp Pulse Resp BP Pulse Ox
98.4 F 112 18 149/96 97
12/21/24 19:11 12/21/24 19:11 12/21/24 19:11 12/21/24 19:11 12/21/24 19:11
MDM/Problems Addressed
Differential Diagnosis Includes:
Note:
CHIEF COMPLAINT(S)
Flu diagnosis with nausea and vomiting.
HISTORY OF PRESENT ILLNESS
The patient is a 54-year-old female recently diagnosed with the influenza virus. She presents with complaints of nausea and vomiting, which began after the diagnosis. The discomfort and weakness have made it difficult for her to maintain an upright
position. Patient does have history of adrenal insufficiency. She was seen in the emergency department earlier today and discussed the concern for admission. She is at high risk for developing adrenal crisis. She was discharged emergency
department and went home and started vomiting. She is unable to tolerate her home medications so she came back to the emergency department for admission
PHYSICAL EXAM
General: Well appearing and non-toxic
HEENT: protecting airway. Mildly dry mucous membranes
Neck: appears supple
CV: No evidence of cyanosis. Tachycardic
Resp: No accessory muscle use. Lungs clear
Abd: Non-distended
Extremities: No deformities
Neuro: alert
Psych: Normal affect
Skin: Intact
- Nursing notes reviewed and vital signs reviewed.
PROBLEM LIST
- Acute: Nausea and vomiting.
- Acute: Influenza.
PLAN
- Administered anti-nausea medication.
- Provided fluids for dehydration due to vomiting.
- Administered dose of hydrocortisone, increased to 30 mg as planned for patient care.
DIFFERENTIAL DIAGNOSIS
The Differential Diagnosis includes, in no particular order and is not limited to:
- Influenza
- Viral gastroenteritis
- Medication side effects
- Food poisoning
- Gastroesophageal reflux disease (GERD)
- Peptic ulcer disease
- Stress-related gastritis
- Migraine-related nausea
- Small bowel obstruction
- Acute pancreatitis
Disposition:
SUMMARY OF ENCOUNTER
The patient, a 54-year-old female with recent influenza diagnosis, presented with nausea and vomiting. Due to her history of adrenal insufficiency, she is at increased risk for an adrenal crisis, especially considering her current inability to
tolerate oral intake. In the emergency department, intravenous fluids and anti-nausea medications were administered alongside an increased dose of hydrocortisone to prevent an adrenal crisis.
DISPOSITION
Admit
ASSESSMENT
The patient demonstrates symptoms of nausea and vomiting related to her recent influenza diagnosis, placing her at risk for an adrenal crisis given her medical history of adrenal insufficiency.
EMERGENCY TREATMENTS ADMINISTERED
The patient received intravenous fluids and anti-nausea medication, along with an increased dose of hydrocortisone (adjusted to 30 mg).
PLAN
Admit the patient for further observation and management. Continuation of IV fluids and medications for nausea as required. Ensure monitoring for signs of an adrenal crisis.
MEDICAL DECISION MAKING
Chronic conditions affecting care include the patients history of adrenal insufficiency and influenza diagnosis. Differential Diagnosis considered include influenza, viral gastroenteritis, medication side effects, food poisoning, gastroesophageal
reflux disease (GERD), peptic ulcer disease, stress-related gastritis, migraine-related nausea, small bowel obstruction, and acute pancreatitis.
Category 1
- Clinical information was obtained from the patients history related to prior adrenal insufficiency.
- My independent interpretation of the clinical condition aligns with standard management for adrenal crisis prevention.
Category 2
- Physicians and nursing staff were consulted to discuss the management strategy due to the potential severity of an adrenal crisis.
Risk:
- Decision to admit the patient was made given the complexity of her condition and heightened risk for adrenal crisis due to the current illness and inability to tolerate oral intake.
DIAGNOSIS
- Influenza with associated nausea and vomiting (ICD-10: J11.1)
- Risk of adrenal crisis due to underlying adrenal insufficiency (ICD-10: E27.4)
*Pulse Oximetry
SaO2: 97
Patient hypoxic: no
*Critical Care Note
Total Time (30-74mins, 75-104mins- exclusive of procedures): Not Applicable
ED Attending Note
-
Portions of this chart may have been created with voice recognition software.� Occasional wrong word or��sound alike� substitutions may have occurred due to the inherent limitations of voice recognition software.
Discharge Plan
Departure
Patient Disposition: Admit
Date of Disposition: 12/21/24
Time of Disposition: 22:48
Admit to: Med/Surg
Presentation/result/management discussed w/ accepting MD/DO: Hospitalist
Discharge Problem:
Influenza, Vomiting
Prescriptions:
No Action
hydrocortisone 10 mg tablet
15 mg PO DAILY
metformin 500 mg tablet extended release 24 hr
500 mg PO DAILY
Rx Instructions:
Patient takes trulicity weekly on Wednesdays. When trulicity unavailable, patient takes metformin ER 500mg daily in AM.
fludrocortisone 0.1 mg tablet
0.1 mg PO DAILY
Xarelto 20 mg tablet
20 mg PO DAILY
hydrocortisone 10 MG tablet
10 mg PO QPM
metoprolol succinate [Toprol XL] 25 mg tablet extended release 24 hr
25 mg PO DAILY PRN (Reason: palpitations) Qty: 30 0RF
hydrocortisone 10 mg tablet
30 mg PO TID 10 Days Qty: 90 0RF
oseltamivir [Tamiflu] 75 mg capsule
75 mg PO BID 5 Days Qty: 10 0RF
Interventions
Interventions:
*Risk Screen - Suicide Last Done: 12/21/24 19:13
*General Assessment Last Done: 12/21/24 19:13
*Neglect/Abuse Screening Last Done: 12/21/24 19:13
*ED COVID-19 Vaccine History Last Done: 12/21/24 19:13
Discharge Date and Time
Print Language: SOUTH AFR[place]
[2024-12-21] MEDS: NSS 1000 IV (22:50)
[2024-12-21] MEDS: ZOFRAN 4 MG IV (22:50)
[2024-12-21 22:52] VITALS: BMI 46.9
--- NOTE | 2024-12-21 23:26 | HPS.HSE ---
Addendum entered and electronically signed by Sonal Carballo DO 12/22/24 00:48:
Patient is seen and examined. I have reviewed the patient with nurse practitioner Yoanna. I have reviewed and agree with her history and physical and assessment and plan of care as per below. The patient came to the emergency department earlier
today and was diagnosed with influenza A and discharged from the emergency department as she was stable. She had several episodes of vomiting after returning home and 1 was unable to tolerate her oral steroids for adrenal insufficiency. She
continued to have fevers, nausea vomiting and anorexia. She presented back to the emergency department secondary to concern regarding adrenal crisis in the setting of inability to tolerate oral steroids.
Vital signs remarkable for pulse of 112 bpm, otherwise hemodynamically stable. Temperature 101.
ED treatment
Zofran IV, Cortef 30 mg, Tylenol 650 mg, IV fluids 1 L bolus
Physical exam
The patient is lethargic though awake alert and oriented x 3 without focal neurologic deficit
Cardiovascular regular rate and rhythm, tachycardia
Lungs are clear to auscultation bilaterally no wheezes rales rhonchi
Abdomen is soft nontender normal active bowel sounds
Labs Remarkable for sodium 133 glucose 201
Chest x-ray low lung volume, difficult to assess
#Adrenal Insufficiency secondary to bilateral Adrenal Infarcts, concern for development of adrenal crisis as the patient cannot tolerate her oral steroids at this time due to nausea and vomiting
-cont IV hydrocortisone 50 mg TID for now and wean as she is able once tolerating orals
#Influenza A, a/w fatigue, fever, n/v
- Admit to med/surg for observation
- continue Tamiflu
- supportive care
#Hyponatremia 133 sodium, likely secondary to volume depletion and hyperglycemia
-IVF
-repeat labs in am
Additional assessment and plan of care as per below.
Original Note:
Family Physician
-
Family Physician: Rita Mack
Chief Complaint
-
cold/flu/URI symptoms
History of Present Illness
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
to [facility] ED for evaluation of nausea and vomiting. Patient was seen in ED early in day for flu like symptoms and was ultimately diagnosed with influenza A and discharged home with medication. After returning home patient began vomiting and unable to
tolerate anything PO, she returned to ED for fear of adrenal crisis with inability to tolerate daily steroid. Patient reports fever, chills, productive cough, body aches, nausea, vomiting and diarrhea.
Medical History
Past Medical History
Past Medical History: Reports Other
Additional Past Medical History:
Hypertension
Hyperlipidemia
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
Diabetes Mellitus, Type II
Heparin-Induced Thrombocytopenia
Past Surgical History: Reports Other
Additional Past Surgical History:
Appendectomy
Tonsillectomy
Social History
Tobacco: Non-smoker
Alcohol: None
Drug: None
Living: With Family
Employment: Employed
Family History
Family History: Other (Mother: Breast caner)
Allergies / Home Medications
Allergies reflects when Allergies were last updated in [facility].
Home Medications with original date entered in [facility]
Allergy/Medication List:
Allergies
Allergy/AdvReac Type Severity Reaction Status Date / Time
enoxaparin Allergy Heparin-induced Verified 12/21/24 11:34
thrombocytopenia
erythromycin base (From Allergy Rash Verified 12/21/24 11:34
Erythrocin)
heparin Allergy Heparin-induced Verified 12/21/24 11:34
thrombocytopenia
Home Medications
fludrocortisone 0.1 mg tablet 0.1 mg PO DAILY adrenal insufficiency 07/29/23
hydrocortisone 10 mg tablet 10 mg PO QPM adrenal insufficiency 07/29/23
hydrocortisone 10 mg tablet 15 mg PO DAILY adrenal insufficiency 07/29/23
metformin 500 mg tablet,extended release 24 hr 500 mg PO DAILY Diabetes 07/29/23
rivaroxaban 20 mg tablet (Xarelto) 20 mg PO DAILY Blood Clot Prevention/Tx 07/29/23
hydrocortisone 10 mg tablet 30 mg (3 x 10 mg) PO TID 10 days #90 tabs 12/21/24
oseltamivir 75 mg capsule (Tamiflu) 75 mg PO BID 5 days #10 caps 12/21/24
Review of Systems
-
History Source: Patient
Constitutional: Reports Fever and Fatigue
EENT: Reports No Symptoms
Respiratory: Reports Cough (productive )
Cardiac: Reports No Symptoms
Abdomen/GI: Reports Nausea, Vomiting and Diarrhea
: Reports No Symptoms
Musculoskeletal: Reports No Symptoms
Skin: Reports No Symptoms
Neurological: Reports No Symptoms
Endocrine: Reports No Symptoms
Hematologic/Lymphatic: Reports No Symptoms
Psych: Reports No Symptoms
Physical Exam
Vital Signs
Vital Signs
Temp Pulse Resp BP Pulse Ox
98.4 F 112 18 149/96 97
12/21/24 19:11 12/21/24 19:11 12/21/24 19:11 12/21/24 19:11 12/21/24 22:48
Physical Exam
General: Well Developed, Well Nourished, No Apparent Distress and Obese
HEENT: NormoCephalic, Moist mucous membranes and Atraumatic
Respiratory: Clear and Non Labored Respirations
Cardiac: S1/S2, Regular Rhythm and Tachycardia
Breast: Deferred by me
GI: Soft, Non Tender, Non Distended and Normal Bowel Sounds; No Organomegaly
Rectal: Deferred by Provider
Genito-urinary: Deferred by me
Musculoskeletal: No Clubbing, No Cyanosis and No Edema
Skin: Warm and IV/Catheter Site
Neuro: Awake, Alert, AO x 3 and Nonfocal/grossly intact
Psych: Calm and Intact Judgment/Insight
Data Reviewed
-
Diagnostic Radiology: Report Reviewed by me (CXR: Extremely low lung volumes. No acute pulmonary process.)
Medical Tests (Nuc Med, Echo, EKG etc): Report Reviewed by me (EKG: SINUS TACHYCARDIA)
Lab Data: Labs Reviewed by me
Impression/Plan
-
IMPRESSION/PLAN:
#influenza A
Influenza: A positive
Covid: negative
CXR: Extremely low lung volumes.
No acute pulmonary process.
- Admit to med/surg for observation
- continue Tamiflu
- supportive care
#Adrenal Insufficiency secondary to bilateral Adrenal Infarcts
- IV Solu-Cortef 50mg q8
- hold fludrocortisone
- hold hydrocortisone
#Diabetes Mellitus, Type II
- hold metformin
- AccuCheck AC & HS
- SSI
#Heparin-Induced Thrombocytopenia
Code status: full code
DVT prophylaxis: Xarelto
[2024-12-21] MEDS: HYDROCORTONE/CORTEF 30 MG PO (23:30)
[2024-12-21] MEDS: TYLENOL 650 MG PO (23:35)
[2024-12-21 23:37] VITALS: BP 126/71
[2024-12-22] VITALS (10 sets, daily range): BP systolic 105–156; BP diastolic 57–122; BMI 45.7
[2024-12-22] MEDS: NSS 1000 IV ×3 (01:53→19:06)
[2024-12-22 06:41] LABS: Hematocrit 34.7 % (37.0-47.0); Hemoglobin 11.7 g/dL (12.0-16.0); Mean Corp Hgb Conc. 33.7 g/dL (33.0-37.0); Mean Corpuscular Volume 75.8 fL (81.0-99.0); Platelet Count 167 10^3/uL (130-400); Red Cell Dist. Width 13.5 % (11.5-14.5)
[2024-12-22 07:00] LABS: Blood Urea Nitrogen 7 mg/dl (7-17); Calcium 8.3 mg/dl (8.4-10.2); Carbon Dioxide 22 mmol/L (22-30); Chloride 106 mmol/L (98-107); Estimated Creatinine Clearance 108 ml/min; Glucose 175 mg/dl (70-99); Potassium 3.8 mmol/L (3.5-5.1); Sodium 133 mmol/L (135-145); eGFR > 60.00
[2024-12-22 08:40] LABS: Glycohemoglobin (HgbA1c) 7.3 % (4.0-5.6)
[2024-12-22 09:09] LABS: Glucose - Point of Care 148 mg/dl (70-99)
[2024-12-22] MEDS: NOVOLOG FLEXPEN-LOW RESISTANCE SC (09:25)
--- NOTE | 2024-12-22 11:23 | W.PN.HOSP.TC ---
Today's Communication/Plan
-
Tamiflu
IV hydrocortisone
Fludrocortisone
IV fluids
Assessment / Plan
Assessment / Plan
Gen-AAOx3, NAD
HEENT-NC, AT, anicteric, clear oral mm
Neck-supple
CV-reg, no M, +S1/S2
Lungs-clear B/L
Abd-soft, NT, ND
Ext-no edema
Musculoskeletal-no cyanosis, clubbing
Skin-warm and dry
Neuro-grossly non-focal
Psych-calm, cooperative
Acute influenza A -Tamiflu ordered. No evidence of pneumonia on chest x-ray. She is not vaccinated, I encouraged her to get yearly flu vaccine, especially in light of her adrenal insufficiency and underlying diabetes.
She has GI symptoms characterized by nausea and abdominal discomfort as well as diarrhea likely due to influenza infection. Complaining of anorexia, unable to finish her meal this morning. Treat supportively.
Hyponatremia -sodium 133, likely due to volume depletion. Continue normal saline IV fluids.
Chronic adrenal insufficiency -with history of bilateral adrenal infarcts. Getting stress dose steroids due to presentation with inability to tolerate oral meds, vomiting.
Resume fludrocortisone. Her lead pharmacy technician is in [place], Dr. Carney.
DM2 with hyperglycemia -hemoglobin A1c 7.3%. Glucose 175 this morning. She is on metformin and Trulicity at home.
Essential hypertension -stable. Check orthostatic vitals prior to discharge.
Hyperlipidemia
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
Morbid obesity due to excess calories
Full code
Dispo -can discharge when tolerating diet.
Anticipated Discharge: Within 24 hours
Subjective/Interval History
-
Date of Service: December 22, 2024
Patient seen and examined. Complaining of weakness, mild nausea.
Objective Data
-
Labs:
Laboratory Results
12/22/24
06:23
WBC 5.2
Hgb 11.7 L
Hct 34.7 L
Plt Count 167
Sodium 133 L
Potassium 3.8
Chloride 106
Carbon Dioxide 22
BUN 7
Creatinine 0.6
Glucose 175 H
Calcium 8.3 L
Vital Signs:
Vital Signs
Temp Pulse Resp BP Pulse Ox
100.3 F 116 14 106/67 97
12/22/24 07:00 12/22/24 07:00 12/22/24 07:00 12/22/24 07:00 12/22/24 07:00
Review of Systems
-
History Source: Patient
All other systems: Reviewed and negative
[2024-12-22] MEDS: SOLU-CORTEF 50 MG IV ×3 (11:45→23:27)
[2024-12-22] MEDS: TAMIFLU 75 MG PO ×2 (11:45→20:04)
[2024-12-22] MEDS: XARELTO 20 MG PO (11:45)
[2024-12-22 12:53] LABS: Glucose - Point of Care 167 mg/dl (70-99)
[2024-12-22] MEDS: NOVOLOG FLEXPEN-LOW RESISTANCE 1 UNITS SC (13:14)
[2024-12-22] MEDS: FLORINEF 0.1 MG PO (13:14)
--- NOTE | 2024-12-22 17:15 | CM ---
Patient with Dx Acute influenza A. Receiving IV Solucortef, IVF, Tamiflu.
Spoke with patient who resides with her 3 children, twin sons age 21, 26 yr old daughter, in a first floor apartment with no IRAIS.
The patient was independent in ADLs and ambulation.
She was active and works.
The patient has no DME.
Prior [facility]
PCP - Rita Mack
Pharmacy - [facility]
CM continuing to follow.
Plan home.
[2024-12-22 17:29] LABS: Glucose - Point of Care 221 mg/dl (70-99)
[2024-12-22] MEDS: NOVOLOG FLEXPEN-LOW RESISTANCE 2 UNITS SC (17:53)
[2024-12-22 21:54] LABS: Glucose - Point of Care 286 mg/dl (70-99)
[2024-12-23] MEDS: NSS 1000 IV (04:42)
[2024-12-23 08:00] VITALS: BP 148/79
[2024-12-23 08:30] LABS: ALT (SGPT) 31 U/L (0-35); AST (SGOT) 28 U/L (14-36); Albumin 4.1 g/dl (3.5-5.0); Alkaline Phosphatase 65 U/L (38-126); Blood Urea Nitrogen 7 mg/dl (7-17); Calcium 9.1 mg/dl (8.4-10.2); Carbon Dioxide 24 mmol/L (22-30); Chloride 109 mmol/L (98-107); Estimated Creatinine Clearance 106 ml/min; Glucose 180 mg/dl (70-99); Potassium 3.7 mmol/L (3.5-5.1); Sodium 140 mmol/L (135-145); Total Protein 6.9 g/dl (6.3-8.2); eGFR > 60.00
[2024-12-23 08:59] VITALS: BP 148/79
[2024-12-23 09:02] LABS: Glucose - Point of Care 159 mg/dl (70-99)
[2024-12-23] MEDS: TAMIFLU 75 MG PO (09:12)
[2024-12-23] MEDS: NOVOLOG FLEXPEN-LOW RESISTANCE 1 UNITS SC (09:12)
[2024-12-23] MEDS: XARELTO 20 MG PO (09:12)
[2024-12-23] MEDS: FLORINEF 0.1 MG PO (09:12)
[2024-12-23] MEDS: SOLU-CORTEF 50 MG IV (09:14)
--- NOTE | 2024-12-23 09:15 | W.PN.HOSP.TC ---
Today's Communication/Plan
-
Check stool studies
Discharge
Assessment / Plan
Assessment / Plan
Gen-AAOx3, NAD
HEENT-NC, AT, anicteric, clear oral mm
Neck-supple
CV-reg, no M, +S1/S2
Lungs-clear B/L
Abd-soft, NT, ND
Ext-no edema
Musculoskeletal-no cyanosis, clubbing
Skin-warm and dry
Neuro-grossly non-focal
Psych-calm, cooperative
Acute influenza A -continue Tamiflu. No evidence of pneumonia on chest x-ray. She is not vaccinated, I encouraged her to get yearly flu vaccine, especially in light of her adrenal insufficiency and underlying diabetes.
She has GI symptoms characterized by nausea and abdominal discomfort as well as diarrhea likely due to influenza infection. Complaining of anorexia, unable to finish her meal this morning. Treat supportively.
Given worsening diarrhea overnight, check stool for C. difficile infection.
Hyponatremia -improved with IV fluids.
Chronic adrenal insufficiency -with history of bilateral adrenal infarcts/hemorrhage. Getting stress dose steroids due to presentation with inability to tolerate oral meds, vomiting.
Continue fludrocortisone. 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 Carney.
Can transition back to oral steroids on discharge at double dose until she feels back to baseline at which point she can reduce to previous dose of 15 mg in the morning, 10 mg in the afternoon. Close follow-up with her rod mill tender. Discussed
in detail with patient.
DM2 with hyperglycemia -hemoglobin A1c 7.3%. Glucose 180 this morning. She is on metformin and Trulicity at home.
Essential hypertension -stable. Check orthostatic vitals prior to discharge.
Hyperlipidemia
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 Suspect her adrenal insufficiency was related to HIT induced adrenal infarcts.
Morbid obesity due to excess calories
Full code
Dispo -anticipate discharge home later today after stool checked for C. difficile infection. Outpatient follow-up with PCP and endocrinology.
32-minute spent in discharge process.
Anticipated Discharge: Today
Subjective/Interval History
-
Date of Service: December 23, 2024
Patient seen and examined, feeling better, eager to go home. Unfortunately her diarrhea is worse compared to yesterday.
Objective Data
-
Labs:
Laboratory Results
12/23/24
07:55
Sodium 140
Potassium 3.7
Chloride 109 H
Carbon Dioxide 24
BUN 7
Creatinine 0.5 L
Glucose 180 H
Calcium 9.1
Total Bilirubin 0.5
AST 28
ALT 31
Alkaline Phosphatase 65
Vital Signs:
Vital Signs
Temp Pulse Resp BP Pulse Ox
98.3 F 85 16 148/79 99
12/23/24 08:00 12/23/24 08:00 12/23/24 08:00 12/23/24 08:00 12/23/24 08:00
I&O
12/22/24 12/23/24 12/24/24
06:59 06:59 06:59
Intake Total 240 / 240
Balance 240 / 240
Review of Systems
-
History Source: Patient
All other systems: Reviewed and negative
[2024-12-23 09:52] VITALS: BP 138/85; BP 146/89; BP 149/86; PULSE 85; PULSE 89
--- NOTE | 2024-12-23 10:52 | CM ---
CM met with pt bedside
Per chart, possible dc later today
Pt is independent in her room
Will call niece for ride home
OBS form verbally reviewed- copy provided
Discharge Disposition- home, no needs, family transport
[2024-12-23 12:22] LABS: Glucose - Point of Care 286 mg/dl (70-99)
--- NOTE | 2024-12-23 13:12 | W.DS.TRANS ---
DC Summary - [employer]
-
Discharge Instructions:
Discharge Diagnosis/Procedures Influenza A infection, adrenal insufficiency
Diet Diabetic, Carb Controlled
Activity As tolerated
Driving Restrictions As prior to admission
Bathing Restrictions None
Instructions:
Stand-Alone Forms:
Changes to Home Medications: No
Discharge Medications:
DC Medications w/original date entered in [facility]
fludrocortisone 0.1 mg tablet 0.1 mg PO DAILY adrenal insufficiency 07/29/23
hydrocortisone 10 mg tablet 10 mg PO QPM adrenal insufficiency 07/29/23
metformin 500 mg tablet,extended release 24 hr 500 mg PO DAILY Diabetes 07/29/23
rivaroxaban 20 mg tablet (Xarelto) 20 mg PO DAILY Blood Clot Prevention/Tx 07/29/23
hydrocortisone 10 mg tablet 15 mg (1.5 x 10 mg) PO DAILY adrenal insufficiency #90 tabs 12/23/24
oseltamivir 75 mg capsule (Tamiflu) 75 mg PO BID 5 days #7 caps 12/23/24
Home Medication Changes
Pending Results: No
[2024-12-23] MEDS: NOVOLOG FLEXPEN-LOW RESISTANCE 3 UNITS SC (13:14)
[2024-12-23 13:36] VITALS: BP 156/86
== END 2024-12-23 13:39 | disposition home or self-care (01) ==
LOC: 1 ACUTE 00:37
PROVIDERS: Nurse Practitioner Family; ADMITTING PHYSICIAN Internal Medicine; ATTENDING PHYSICIAN Hospitalist; EMERGENCY PHYSICIAN Student in an Organized Health Care Education/Training Program; FAMILY PHYSICIAN Internal Medicine
DX: J10.1 Influenza due to other identified influenza virus with other respiratory manifestations (principal); J10.2 Influenza due to other identified influenza virus with gastrointestinal manifestations; E11.65 Type 2 diabetes mellitus with hyperglycemia; K21.9 Gastro-esophageal reflux disease without esophagitis; E27.40 Unspecified adrenocortical insufficiency; E87.1 Hypo-osmolality and hyponatremia; E78.5 Hyperlipidemia, unspecified; I10 Essential (primary) hypertension; E66.01 Morbid (severe) obesity due to excess calories; Z68.42 Body mass index [BMI] 45.0-49.9, adult; Z79.01 Long term (current) use of anticoagulants; Z79.84 Long term (current) use of oral hypoglycemic drugs; Z79.899 Other long term (current) drug therapy
CPT/HCPCS: 80048; 80053; 82962; 83036; 85027; 87324; 87449; 99285; G0378